=== PATIENT | male | born 1980 | race Caucasian/White ===

== ENCOUNTER 2017-09-23 14:20 | Emergency (ER) | payer OTHER ==
[2017-09-23 14:26] VITALS: BP 127/84; PULSE 105; TEMP 99.5; BMI 28.2
[2017-09-23] MEDS ORDERED: ASPIRIN 81 MG CHEWABLE TABLETS PO ONE (15:16)
[2017-09-23] MEDS ORDERED: ASPIRIN 81 MG CHEWABLE TABLETS ONE (15:22)
[2017-09-23 15:44] LABS: BASOPHIL 0.3 % (0-2.0); EOSINOPHIL 0.3 % (0-4.5); MCH 29.2 pg (25.7-33.7); MCHC 33.4 g/dl (32.0-35.9); MEAN CELL VOLUME 87.5 fl (80-96); MEAN PLT VOLUME 9.8 fl (7.5-11.1); NEUTROPHILS 72.5 % (42.8-82.8); PLATELET COUNT 223 K/MM3 (134-434); RDW 13.6 % (11.9-15.9); WHITE BLOOD COUNT 11.8 K/mm3 (4.0-10.0)
--- NOTE | 2017-09-23 15:47 | PDOC ---
History of Present Illness - General History Source: Patient Exam Limitations: No Limitations - History of Present Illness Presenting Symptoms: Chest Pain Timing/Duration: reports: changing over time Severity/Quality: reports: mild, pressure Location: reports: substernal Activities at Onset: reports: none Prior Chest Pain/Cardiac Workup: reports: No prior chest pain Nitro Today/Relief: Yes: no nitro taken today Aspirin Received prior to arrival (Core Measure): Yes: 81 mg x 2, provided by ED Beta Rolando indicated at this time? (Core Measure): No Associated Symptoms: Yes: Chest Pain/pressure <Etta Monaco - Last Filed: 09/23/17 19:08> <Julee Johnson - Last Filed: 09/23/17 20:17> - General Chief Complaint: Chest Pain Stated Complaint: TROUBLE BREATHING Time Seen by Provider: 09/23/17 14:38 - History of Present Illness Initial Comments: 09/23/17 14:57 37-year-old male with no past medical history presents the ED with complaints of sudden onset of left sided chest pressure while driving home after going to the gym. Patient describes the pain as sharp constant pain that has decreased in severity since onset and states also had a brief episode of shortness of breath lasting approximately 10 seconds associated with palpitations. Patient denies difficulty breathing presently, fever, cough, recent travel, calf pain, smoking history, cardiac familial history, high cholesterol, nutritional supplements, drug use, thyroid disorder, recent change in weight, or recent increase in exercise. Patient states was running on the treadmill which He normally does and denies any heavy lifting (Etta Monaco) Past History - Travel Traveled outside of the country in the last 30 days: No - Past Medical History COPD: No Other medical history: HERNIATED DISC - Suicide/Smoking/Psychosocial Hx Smoking Status: No Smoking History: Never smoked Number of Cigarettes Smoked Daily: 0 Hx Alcohol Use: Yes (SOCIAL) Drug/Substance Use Hx: No Substance Use Type: None Patient Lives Alone: No Lives with/in: spouse/SO <Etta Monaco - Last Filed: 09/23/17 19:08> <Julee Johnson - Last Filed: 09/23/17 20:17> - Past Medical History Allergies/Adverse Reactions: Allergies Allergy/AdvReac Type Severity Reaction Status Date / Time bee venom protein (honey bee) Allergy Verified 09/23/17 15:02 Home Medications: Ambulatory Orders No Home Medications 0 dose .ROUTE UTDICT 07/21/12 Review of Systems - Review of Systems Able to Perform ROS?: Yes Constitutional: No: Symptoms Reported HEENTM: No: Symptoms Reported Respiratory: No: Shortness of Breath (episodic 10 seconds 2 hours ago) Cardiac (ROS): Yes: Chest Pain ABD/GI: No: Symptoms Reported Musculoskeletal: No: Symptoms Reported Integumentary: No: Symptoms Reported <Etta Monaco - Last Filed: 09/23/17 19:08> *Physical Exam - Physical Exam General Appearance: Yes: Nourished, Appropriately Dressed. No: Apparent Distress Neck: positive: Normal Thyroid Respiratory/Chest: positive: Lungs Clear, Normal Breath Sounds. negative: Chest Tender, Respiratory Distress, Accessory Muscle Use Cardiovascular: positive: Regular Rhythm, Tachycardia (103 on monitor). negative: Murmur Vascular Pulses: Dorsalis-Pedis (R): 2+, Doralis-Pedis (L): 2+ Gastrointestinal/Abdominal: positive: Soft. negative: Tenderness Extremity: negative: Normal Capillary Refill, Pedal Edema Integumentary: positive: Normal Color, Warm, Moist Neurologic: positive: Motor Strength 5/5 (ambulatory) <Etta Monaco - Last Filed: 09/23/17 19:08> - Vital Signs Last Vital Signs Temp Pulse Resp BP Pulse Ox 99.5 F 105 H 20 127/84 98 09/23/17 14:24 09/23/17 14:24 09/23/17 14:24 09/23/17 14:24 09/23/17 14:24 Heart Score/ECG Review - History History: Slightly suspicious - Electrocardiogram EKG: Normal - Age Age: </= 45 - Risk Factors Based on the list above the patient has:: No risk factors known - Troponin Troponin: </= normal limit - Score Heart Score - Total: 0 - ECG Intrepretation Rhythm: Regular Rhythm (rate 93. No ST elevation or depression. Intervals are reg) <Etta Monaco - Last Filed: 09/23/17 19:08> ED Treatment Course - LABORATORY CBC & Chemistry Diagram: 09/23/17 15:40 09/23/17 15:40 <Etta Monaco - Last Filed: 09/23/17 19:08> - LABORATORY CBC & Chemistry Diagram: 09/23/17 15:40 09/23/17 15:40 <Julee Johsnon - Last Filed: 09/23/17 20:17> - ADDITIONAL ORDERS Additional order review: Laboratory Results 09/23/17 09/23/17 09/23/17 19:26 16:31 15:40 D-Dimer Sodium 137 Potassium 4.0 Chloride 101 Carbon Dioxide 24 Anion Gap 12 BUN 20 H Creatinine 1.0 Creat Clearance w eGFR > 60 Random Glucose 98 Calcium 8.7 Total Bilirubin 0.3 AST 17 ALT 31 Alkaline Phosphatase 53 Creatine Kinase 234 253 Creatine Kinase Index 0.4 CK-MB (CK-2) 1.185 Troponin I < 0.02 < 0.02 Total Protein 8.1 Albumin 4.4 TSH 0.44 09/23/17 09/23/17 15:40 15:26 D-Dimer < 200 Sodium Potassium Chloride Carbon Dioxide Anion Gap BUN Creatinine Creat Clearance w eGFR Random Glucose Calcium Total Bilirubin AST ALT Alkaline Phosphatase Creatine Kinase 253 Creatine Kinase Index 0.3 CK-MB (CK-2) 1.011 Troponin I < 0.02 Total Protein Albumin TSH 09/23/17 15:40 RBC 5.24 MCV 87.5 MCHC 33.4 RDW 13.6 MPV 9.8 Neutrophils % 72.5 Lymphocytes % 20.7 Monocytes % 6.2 Eosinophils % 0.3 Basophils % 0.3 - Medications Given in the ED: ED Medications Discontinued Medications Generic Name Dose Route Start Last Admin Trade Name Freq PRN Reason Stop Dose Admin Aspirin 162 mg 09/23/17 15:16 09/23/17 15:20 Asa - PO 09/23/17 15:17 162 mg ONCE ONE Administration Medical Decision Making <Etta Monaco - Last Filed: 09/23/17 19:08> <Julee Johnson - Last Filed: 09/23/17 20:17> - Medical Decision Making 09/23/17 15:01 Patient here with sudden onset of left-sided chest pain which she describes as pressure-like and had a brief episode of shortness of breath and palpitations. Patient here intermittently tachycardic but no acute findings on exam. Patient concerning for ACS, thyroid disorder, PE, and angina. Patient ordered for aspirin along with cardiac workup. D-dimer, and chest x-ray. 09/23/17 16:03 09/23/17 16:31 Laboratory Tests 09/23/17 09/23/17 09/23/17 15:40 15:40 15:40 WBC 11.8 H Hgb 15.3 Hct 45.8 Plt Count 223 Neutrophils % 72.5 D-Dimer Pending Sodium 137 Potassium 4.0 Chloride 101 Carbon Dioxide 24 Anion Gap 12 BUN 20 H Creatinine 1.0 Random Glucose 98 Total Bilirubin 0.3 AST 17 ALT 31 Troponin I < 0.02 chest xray - for acute findings 09/23/17 18:04 Laboratory Tests 09/23/17 09/23/17 15:40 15:40 D-Dimer < 200 Creatine Kinase Index 0.4 CK-MB (CK-2) 1.185 Pt currently asymptomatic. Awaiting 2nd troponin and EKG. Awaiting tsh level 09/23/17 18:31 Laboratory Tests 09/23/17 16:31 TSH 0.44 Patient remains asymptomatic. Patient given dinner tray and is aware of next troponin and EKG due at 7:30. (Etta Monaco) *DC/Admit/Observation/Transfer <Etta Monaco - Last Filed: 09/23/17 19:08> <Julee Johnson - Last Filed: 09/23/17 20:17> Diagnosis at time of Disposition: Chest pain Qualifiers: Chest pain type: unspecified Qualified Code(s): R07.9 - Chest pain, unspecified - Discharge Dispostion Disposition: HOME Condition at time of disposition: Improved - Referrals Referrals: Coco Domingo MD [Staff Physician] - - Patient Instructions Printed Discharge Instructions: DI for Atypical Chest Pain Additional Instructions: Please take tylenol for discomfort. Please follow up with referred sign language interpreter. Please return to the ED if symptoms return or worsen.
[2017-09-23 16:08] LABS: ALBUMIN 4.4 g/dl (3.4-5.0); ANION GAP 12 (8-16); BILIRUBIN,TOTAL 0.3 mg/dL (0.2-1.0); CALCIUM 8.7 mg/dL (8.5-10.1); CO2 24 mmol/L (21-32); GLUCOSE,RANDOM 98 mg/dL (74-106); SGOT/AST 17 U/L (15-37); SGPT/ALT 31 U/L (12-78); TOT PROT 8.1 g/dl (6.4-8.2)
[2017-09-23 16:11] LABS: ALK PHOS 53 U/L (45-117); CPK 253 IU/L (39-308); TROPONIN I < 0.02 ng/ml (0.00-0.05)
[2017-09-23 18:21] LABS: CPK 253 IU/L (39-308); TROPONIN I < 0.02 ng/ml (0.00-0.05)
[2017-09-23 20:06] LABS: CPK 234 IU/L (39-308); TROPONIN I < 0.02 ng/ml (0.00-0.05)
--- NOTE | 2017-09-24 09:50 | EKG ---
Test Reason : Blood Pressure : / mmHG Vent. Rate : 093 BPM Atrial Rate : 093 BPM P-R Int : 124 ms QRS Dur : 088 ms QT Int : 342 ms P-R-T Axes : 047 041 007 degrees QTc Int : 425 ms SINUS RHYTHM WITH MARKED SINUS ARRHYTHMIA POSSIBLE LEFT ATRIAL ENLARGEMENT BORDERLINE ECG NO PREVIOUS ECGS AVAILABLE Confirmed by NINOSKA ROMANO, LUIS A ([id number]) on 09/24/2017 9:49:21 AM Referred By: Confirmed By:LUIS A XIAO MD
--- NOTE | 2017-09-24 09:52 | EKG ---
Test Reason : Blood Pressure : / mmHG Vent. Rate : 095 BPM Atrial Rate : 095 BPM P-R Int : 130 ms QRS Dur : 080 ms QT Int : 342 ms P-R-T Axes : 046 043 007 degrees QTc Int : 429 ms NORMAL SINUS RHYTHM WITH SINUS ARRHYTHMIA POSSIBLE LEFT ATRIAL ENLARGEMENT BORDERLINE ECG WHEN COMPARED WITH ECG OF 23-SEP-2017 14:27, NO SIGNIFICANT CHANGE WAS FOUND Confirmed by NINOSKA ROMANO, LUIS A ([id number]) on 09/24/2017 9:51:38 AM Referred By: Confirmed By:LUIS A XIAO MD
== END 2017-09-23 20:39 | disposition home or self-care (01) ==
LOC: JER 14:20
DX: R07.89 Other chest pain (principal)
CPT/HCPCS: 36415; 71010-TC; 80053; 82550; 82553; 84443; 84484; 85025; 85379; 93005; 93010; 99282-25